=== PATIENT | male | born 1945 | race Caucasian/White ===

== ENCOUNTER 2018-12-18 12:21 | Day surgery (SDC) | payer OTHER ==
[~2018-12-18] VITALS: Ht 180.3 cm; Wt 95.3 kg
[2018-12-18] MEDS ORDERED: LevALBUTEROL HCL 1.25 MG/0.5 ML *CONC.* VIAL.NEB (XOPENEX CONC.) INH ONE ×2 (13:30→13:39)
[2018-12-18] MEDS ORDERED: WATER FOR IRRIGATION,STERILE 1,000 ML IRRIG.SOLN IR ONE (15:00)
[2018-12-18] MEDS ORDERED: CEFAZOLIN 2 GM IVPB PREMIX 50 ML IV ONE (15:00)
[2018-12-18] MEDS ORDERED: PROPOFOL 200MG/ 20ML VIAL (DIPRIVAN) IV ONE (15:00)
[2018-12-18] MEDS ORDERED: SEVOFLURANE 15 MIN GAS INH ONE (15:00)
[2018-12-18] MEDS ORDERED: fentaNYL CITRATE 250 MCG/5 ML AMP IV ONE (15:00)
[2018-12-18] MEDS ORDERED: ONDANSETRON HCL 4 MG/2 ML VIAL IVP ONE (15:00)
[2018-12-18] MEDS ORDERED: BUPIVACAINE /EPINEPHRINE/PF 0.5% 30 ML VIAL INJ ONE (15:00)
[2018-12-18] MEDS ORDERED: KETOROLAC TROMETHAMINE 30 MG VIAL IVP ONE (15:00)
[2018-12-18] MEDS ORDERED: DEXAMETHASONE SOD PHOSPHATE 4 MG/ML VIAL IVP ONE (15:00)
[2018-12-18] MEDS ORDERED: D5/0.45 NS 1,000 ML IV SCH (16:35)
[2018-12-18] MEDS ORDERED: ONDANSETRON HCL 4 MG/2 ML VIAL IVP PRN (16:45)
[2018-12-18] MEDS ORDERED: ACETAMINOPHEN 325 MG TABLET PO PRN (16:45)
[2018-12-18 18:50] VITALS: BP_SYST 103
== END 2018-12-18 18:15 | disposition home or self-care (01) ==
LOC: SDS 12:21 → SMU 12:22 → SDS 18:15
PROVIDERS: ATTEND Surgery
DX: C77.0 Secondary and unspecified malignant neoplasm of lymph nodes of head, face and neck (principal); F17.200 Nicotine dependence, unspecified, uncomplicated; F32.9 Major depressive disorder, single episode, unspecified; E78.5 Hyperlipidemia, unspecified; E66.9 Obesity, unspecified; Z68.29 Body mass index [BMI] 29.0-29.9, adult; Z79.899 Other long term (current) drug therapy; Z98.890 Other specified postprocedural states; M19.90 Unspecified osteoarthritis, unspecified site; R11.2 Nausea with vomiting, unspecified; R05 Cough
CPT/HCPCS: 11623; 88305; 88333; 94640; J0690; J1100; J1885; J2405; J2704; J3010; J3490; J7612; 88341; 88342

== ENCOUNTER 2019-04-04 11:12 | Emergency (ER) | payer OTHER ==
[~2019-04-04] VITALS: Ht 177.8 cm; Wt 86.2 kg
[2019-04-04 11:15] VITALS: BP_SYST 100
--- NOTE | 2019-04-04 11:15 | NUR ---
Patient to ER bed 8 to gown for evaluation. Side rails up. Report given to CONSUELO Kaminski.
[2019-04-04] MEDS ORDERED: NACL 0.9% 1,000 ML IV ONE (11:20)
[2019-04-04] MEDS ORDERED: NS 1000 ML IV.SOLN IV ONE (11:30)
--- NOTE | 2019-04-04 11:30 | NUR ---
Patient is awake, alert, and oriented x4. Patient reports he felt dizzy today and had hypotension. 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
--- NOTE | 2019-04-04 11:35 | NUR ---
ER Dr. Arevalo at bedside examining patient.
[2019-04-04 11:49] LABS: HEMOGLOBIN 11.5 g/dL (14.0-18.0); MEAN CORPUSCULAR HEMOGLOBIN 32 pg (27-31); RED BLOOD CELL COUNT(AUTO) 3.66 MIL/uL (4.2-6.2)
[2019-04-04 11:55] LABS: ANION GAP 6 (5-15); CHLORIDE 99 mmol/L (98-107); CREATININE 1.36 mg/dL (0.55-1.30); GLUCOSE 159 mg/dL (70-99); HEMATOCRIT 33.6 % (36-54); MEAN CORPUSCULAR HGB CONC 34 % (32-36); MEAN CORPUSCULAR VOLUME 92 fL (79.0-98.0); PLATELET COUNT (AUTO) 149 K/uL (130-430); POTASSIUM 3.9 mmol/L (3.5-5.1); RED CELL DISTRIBUTION WIDTH 13.3 % (9.0-15.0); SODIUM SERUM 133 mmol/L (136-145); UREA NITROGEN, BLOOD 33 mg/dL (8-21)
[2019-04-04 11:58] LABS: WHITE BLOOD COUNT (AUTO) 1.4 K/uL (4.8-10.8)
[2019-04-04 12:00] LABS: INR 0.9 (0.80-1.20)
[2019-04-04 12:10] LABS: ALANINE AMINOTRANSFERASE 23 U/L (12-78); ALBUMIN 2.9 g/dL (3.4-4.8); ASPARTATE AMINOTRANSFERASE 13 U/L (10-37); LIPASE 144 U/L (73-393); TOTAL BILIRUBIN 0.4 mg/dL (0.0-1.0)
[2019-04-04 12:26] LABS: ATYPICAL LYMPHOCYTES % 0 % (0-0); BAND % (MANUAL) 7 % (0-6); LYMPHOCYTES % (MANUAL) 20 % (20-46)
[2019-04-04 12:27] LABS: BASOPHILS % (MANUAL) 0 % (0-2); EOSINOPHILS % (MANUAL) 1 % (0-7); MONOCYTES % (MANUAL) 9 % (0-11)
[2019-04-04 14:05] LABS: BILIRUBIN,URINE NEGATIVE (NEGATIVE); BLOOD, URINE NEGATIVE (NEGATIVE); CLARITY/URINE CLEAR (CLEAR); COLOR,URINE YELLOW (YELLOW); GLUCOSE,URINE NEGATIVE (NEGATIVE); KETONES,URINE NEGATIVE (NEGATIVE); LEUKOCYTE ESTERASE ,URINE NEGATIVE (NEGATIVE); NITRITE, URINE NEGATIVE (NEGATIVE); PH,URINE 6.5 (5.0-8.0); PROTEIN URINE NEGATIVE (NEGATIVE); UROBILINOGEN,URINE 0.2 (0.2-1.0)
--- NOTE | 2019-04-04 14:20 | NUR ---
Patient given written and verbal discharge instructions and verbalizes understanding. ER MD discussed with patient the results and treatment provided. Patient in stable condition. ID arm band removed. Patient educated on pain management and to follow up with PMD. Pain Scale 0/10. Opportunity for questions provided and answered. Medication side effect fact sheet provided.
[2019-04-04 14:21] VITALS: BP_SYST 118
== END 2019-04-04 14:21 | disposition home or self-care (01) ==
LOC: SED 11:12
DX: R55 Syncope and collapse (principal); D70.9 Neutropenia, unspecified; F17.200 Nicotine dependence, unspecified, uncomplicated; Z85.818 Personal history of malignant neoplasm of other sites of lip, oral cavity, and pharynx; Z96.653 Presence of artificial knee joint, bilateral
CPT/HCPCS: 36415; 71045; 80053; 81003; 82550; 83605; 83690; 85007; 84484; 85027; 85610; 85730; 87040; 96360; 96361; 99284; J7030

== ENCOUNTER 2022-09-22 07:59 | Emergency (ER) | payer OTHER ==
[~2022-09-22] VITALS: Ht 180.3 cm; Wt 79.4 kg
[2022-09-22 08:04] VITALS: BP_SYST 121
--- NOTE | 2022-09-22 08:20 | NUR ---
Patient to ER bed 08 to gown for evaluation. Side rails up. Report given to CONSUELO CAMPOS
--- NOTE | 2022-09-22 08:25 | NUR ---
Liliana beckett in [facility] - 09/22/22 at 0803 by [email or web address] PATIENT MOVED TO BED 2
--- NOTE | 2022-09-22 08:25 | NUR ---
Patient MOVED to ER bed 02
--- NOTE | 2022-09-22 08:40 | NUR ---
77 YEARS OLD MALE PRESENTS TO ER FOR GT TUBE REPLACEMENT DENIES PAIN STOMA CLEAN, NO REDNESS.
[2022-09-22] MEDS ORDERED: GASTROGRAFIN 120 ML ONE (09:19)
[2022-09-22 10:01] VITALS: BP_SYST 118
--- NOTE | 2022-09-22 10:07 | NUR ---
Patient given written and verbal discharge instructions and verbalizes understanding. ER MD discussed with patient the results and treatment provided. Patient in stable condition. ID arm band removed. Patient educated on pain management and to follow up with PMD. Pain Scale [0/10]. Opportunity for questions provided and answered. Medication side effect fact sheet provided.
--- NOTE | 2022-09-22 10:08 | NUR ---
PATIENT CONDITION STABLE D/C HOME WITH INSTRUCTIONS AFTER CARE REVIEWED UNDERSTOOD LEFT ER WITH , GT PATENT.
== END 2022-09-22 10:08 | disposition home or self-care (01) ==
LOC: SED 07:59
DX: Z43.1 Encounter for attention to gastrostomy (principal); Z79.899 Other long term (current) drug therapy
CPT/HCPCS: 99284; 43762; 74240; 74018; Q9963